=== PATIENT | male | born 1930 | race Caucasian/White ===

== ENCOUNTER 2016-07-04 16:28 | Inpatient (IN) ==
[2016-07-04] MEDS ORDERED: ASPIRIN PO STA (16:56)
[2016-07-04 17:05] LABS: MANUAL DIFF NEEDED? NO
[2016-07-04 17:12] LABS: BASO% 0.6 % (0.0-0.8); EOS# 0.17 X1000 (0.0-0.7); EOS% 1.9 % (0.0-10.0); HEMATOCRIT 34.4 % (42.0-52.0); HEMOGLOBIN 11.3 g/dL (14.0-18.0); IMM GRAN# 0.03 X1000 (0.0-0.04); IMM GRAN% 0.3 % (0.0-0.5); LYMPH# 4.81 X1000 (1.2-3.4); LYMPH% 53.1 % (20.5-51.1); MCH 33.8 PG (27-31); MCHC 32.8 g/dL (33-37); MONO# 0.77 X1000 (0.11-0.59); MONO% 8.5 % (1.7-9.3); MPV 9.8 FL (7.4-10.4); NEUT% 35.6 % (42.2-75.2); PLT 229 X1000 (130-400); RBC 3.34 XMIL (4.7-6.1)
[2016-07-04] MEDS ORDERED: NS 2,000 ML IV ONE (17:20)
[2016-07-04 17:31] LABS: AGAP 21; ALBUMIN 4.2 g/dL (3.5-5.0); ALKALINE PHOSPHATASE 82 U/L (32-122); BUN 21 mg/dL (8-22); CALCIUM 9.4 mg/dL (8.8-10.2); CHLORIDE 98 mmol/L (98-107); CK PROFILE 57 U/L (24-204); COSMO 284; GOT 46 U/L (10-34); GPT 19 U/L (10-44); POTASSIUM 3.7 mmol/L (3.5-5.1); SODIUM 139 mmol/L (136-145); TCO2 20 mmol/L (25-35); TOTAL BILIRUBIN 0.57 mg/dL (0.20-1.00); TOTAL PROTEIN 7.6 g/dL (6.3-8.3)
[2016-07-04] MEDS ORDERED: M.V.I.-12 10 ML, FOLIC ACID 1 MG, MAGNESIUM SULFATE 1 GM, THIAMINE 100 MG in NS 1,000 ML IV ONE (21:19)
[2016-07-04] MEDS ORDERED: PROTONIX IV SCH (21:30)
--- NOTE | 2016-07-04 21:54 | HISTORY AND PHYSICAL ---
CHIEF COMPLAINT: Complains of dizzy spells. HISTORY OF PRESENT ILLNESS: He is an 86-year-old white gentleman who came to the emergency room basically with dizziness and hypotension and he was orthostatic. He has been drinking alcohol. 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 He was admitted in [place] for upper GI bleeding. Seen by Dr. Kasper. Despite counseling, he continues to drink. He had heme-positive stools. Admitted to the hospital with upper GI bleeding which is stable. Hematocrit was 34. He appears to be docile. Last alcohol was yesterday. Basically admitted to the floor for upper GI bleeding. He was seen in my office on 03/23/2016. PAST MEDICAL HISTORY: 1. 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 2. Aortic stenosis. 3. Solitary lung nodule on the right side. PET scan was negative. 4. Deviated nasal septum. 5. Hypertension. 6. Deafness. PAST SURGICAL HISTORY: Bilateral cataract surgery. MEDICINES: Losartan 50 daily. Multivitamins. Norvasc 5 mg daily. Subsequently not able to tolerate due to edema of the legs. SOCIAL HISTORY: Retired. Single. Drinking alcohol. Lives in [place]. FAMILY HISTORY: Father at the age of 68 from heart attack. Mom of old age from dementia. HEALTH MAINTENANCE: Flu vaccine 2014. Last prostate September 2015. Colonoscopy [address] Kasper. REVIEW OF SYSTEMS: HEENT: Dizziness, confusion. No vision problem. No earache. No sore throat. Neck: No goiter. No lymphadenopathy. No bruit. Cardiopulmonary: No chest pain, shortness of breath, PND, orthopnea. GI: Passing black stools. Abdominal pain. No constipation or diarrhea. : No history of hesitancy, frequency, dysuria, hematuria. No swelling of feet. No joint pain. Neurologic: No obvious weakness or seizures. PHYSICAL EXAMINATION: VITALS: He is orthostatic in the emergency room. Afebrile. 138 pounds. HEENT: Atraumatic, normocephalic. Pupils equal, reactive to light. Cataracts removed. NECK: Supple. No lymphadenopathy. No goiter. CHEST: Bilateral air entry. HEART: Sounds are regular with a 2 x 6 systolic murmur in the aortic area. ABDOMEN: Belly is soft, nontender. No signs of peritonitis. No peripheral edema, cyanosis, clubbing. NEUROLOGIC: No obvious deficits. INVESTIGATIONS: White cell count 9, hematocrit 34, MCV is high, platelets 229, 000. PT INR pending. D-dimer is negative. SMA7 is normal. Glucose 167. LFTs were normal. Cardiac enzymes were normal. ASSESSMENT AND PLAN: An 86-year-old, white gentleman, admitted to the hospital with suspicious for gastrointestinal bleeding with heme-positive stool, orthostatic hypertension , in context of drinking alcohol with underlying esophageal varices. 1. Currently stable with banana bag 1 L followed by crystalloids and follow up on serial hematocrits and orthostatic blood pressure. 2. Dr. Kasper consult. If he is unstable, we will transfer to the intensive care unit. 3. Hypertension. On Cozaar and Norvasc which is stopped due to edema. 4. Aortic stenosis, stable last echocardiography. 5. Deafness, stable. 6. Deviated nasal septum, stable. 7. Left retinal hemorrhage, resolved. 8. Elevated prostate-specific antigen, currently stable. Last prostate- specific antigen was 2.4. 9. Atypical chest pain. Follow up on electrocardiogram and cardiac enzymes. 10. History of alcohol abuse. [employer] consulted for help. I will follow up. cc: Nayan Benton MD MTDD
[2016-07-04] MEDS: SODIUM CHLORIDE 0.9% INJ SCH (22:30)
[2016-07-04] MEDS ORDERED: PNEUMOVAX 23 IM ONE (23:49)
--- NOTE | 2016-07-05 05:19 | EKG Report ---
Test Performed on : 07/04/2016 4:37:25 PM Test Reason : Re-Ordered/CP Blood Pressure : / mmHG Vent. Rate : 129 BPM Atrial Rate : 129 BPM P-R Int : 168 ms QRS Dur : 066 ms QT Int : 312 ms P-R-T Axes : 000 026 037 degrees QTc Int : 457 ms Sinus tachycardia. Septal infarct , age undetermined Abnormal ECG When compared with ECG of 20-MAR-2014 05:57, Septal infarct is now present Unconfirmed Result
[2016-07-05 06:03] LABS: MANUAL DIFF NEEDED? NO
[2016-07-05 06:37] LABS: BASO% 0.7 % (0.0-0.8); EOS# 0.22 X1000 (0.0-0.7); EOS% 3.6 % (0.0-10.0); HEMATOCRIT 30.5 % (42.0-52.0); HEMOGLOBIN 9.8 g/dL (14.0-18.0); LYMPH# 2.09 X1000 (1.2-3.4); MCH 33.6 PG (27-31); MCHC 32.1 g/dL (33-37); MCV 104.5 FL (81-99); MONO# 0.82 X1000 (0.11-0.59); MONO% 13.4 % (1.7-9.3); MPV 9.8 FL (7.4-10.4); NEUT% 48.3 % (42.2-75.2); PLT 157 X1000 (130-400); RBC 2.92 XMIL (4.7-6.1)
--- NOTE | 2016-07-05 06:43 | Diag Imaging Result Document ---
PROCEDURE NAME: CHEST-2 VIEWS - 07/04/2016 FRONTAL AND LATERAL CHEST, TWO VIEWS: COMPARISON: Compared to 03/19/2014. FINDINGS: The lungs are hyperexpanded. Mild increased AP diameter to the chest. The pulmonary vessels are small. The heart is not enlarged. There are several old left rib fractures. There is a nodule posteriorly on the lateral chest shown to be a calcified granuloma on the CT from 11/10/2015. No pneumonia. No pleural effusions. Mild scoliosis. IMPRESSION: Emphysema.
--- NOTE | 2016-07-05 06:46 | EKG Report ---
Test Performed on : 07/05/2016 06:04:27 AM Test Reason : cp Blood Pressure : / mmHG Vent. Rate : 053 BPM Atrial Rate : 053 BPM P-R Int : 192 ms QRS Dur : 066 ms QT Int : 474 ms P-R-T Axes : 068 054 056 degrees QTc Int : 444 ms Sinus bradycardia. Otherwise normal ECG When compared with ECG of 04-JUL-2016 16:37, Vent. rate has decreased BY 76 BPM Confirmed by Debbi WILKERSON, Kendell Gallegos ([id number]) on 07/07/2016 9:23:14 PM
[2016-07-05 07:17] LABS: AGAP 13; ALBUMIN 3.6 g/dL (3.5-5.0); ALKALINE PHOSPHATASE 69 U/L (32-122); BUN 15 mg/dL (8-22); CALCIUM 7.9 mg/dL (8.8-10.2); CHLORIDE 108 mmol/L (98-107); CK PROFILE 62 U/L (24-204); COSMO 284; GOT 37 U/L (10-34); GPT 15 U/L (10-44); MAGNESIUM 1.9 mg/dL (1.5-2.7); POTASSIUM 4.3 mmol/L (3.5-5.1); SODIUM 142 mmol/L (136-145); TCO2 21 mmol/L (25-35); TOTAL BILIRUBIN 0.96 mg/dL (0.20-1.00); TOTAL PROTEIN 6.3 g/dL (6.3-8.3)
--- NOTE | 2016-07-05 09:19 | PROGRESS NOTE ---
DATE: 07/05/2016 SUBJECTIVE: Patient went to the bathroom. Denies of any bleeding per rectum. No dizziness. REVIEW OF SYSTEMS: None reported. No chest pain. No abdominal pain. PHYSICAL EXAMINATION: Hemodynamics: Vital signs are stable, 5 feet 6 inches, 138 pounds. HEENT Examination: Within normal limits. Neck: Supple. No lymphadenopathy. Chest: Clear to auscultation. Heart: Heart sounds are regular with a 2/6 systolic murmur in the aortic area. Abdomen: Belly is soft and nontender. No signs of peritonitis noted. Neurologic Examination: No obvious deficits noted. INVESTIGATIONS: CBC: White cell count 6.1, hematocrit 30, platelets 157,000. SMA 7 is normal. Calcium 7.9, magnesium 1.9. Cardiac enzymes were negative. B12 of 595. Chest x-ray stable. EKG: Normal sinus, nothing acute. ASSESSMENT AND PLAN: 1. Atypical chest pain. Followup electrocardiogram and cardiac enzymes were negative. 2. Upper gastrointestinal bleeding in the context of cirrhosis due to alcohol and esophageal varices. Hematocrit dropped to 30. Continue to monitor twice a day. Orthostatic blood pressure. 3. Hypertension. We will hold his home blood pressure medicines. 4. Aortic stenosis, stable. 5. Alcohol use. Intravenous banana bag and started on intravenous fluids. 6. We will discuss with Dr. Kasper further evaluation of upper gastrointestinal bleeding. 7. Level of documentation is level 2, 25 minutes. cc: Nayan Benton MD
[2016-07-05] MEDS: NS 1,000 ML IV SCH ×2 (10:13→21:56)
[2016-07-05] MEDS: ICAR-C PO SCH (21:56)
[2016-07-05] MEDS: CENTRUM SILVER PO SCH (21:56)
[2016-07-05] MEDS: SODIUM CHLORIDE 0.9% INJ SCH (21:56)
[2016-07-05] MEDS: PROTONIX IV SCH (21:56)
--- NOTE | 2016-07-06 05:17 | CONSULTATION ---
DATE OF CONSULTATION: 07/05/2016 REFERRING PHYSICIAN: Jason Benton MD PRIMARY DOCTOR: Jason Benton MD REASON FOR CONSULTATION: Question of gastrointestinal bleeding, anemia and history of liver cirrhosis. 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 He has been drinking alcohol and he has a history of hepatic cirrhosis due to alcoholism with esophageal varices. He was admitted in [place] a few years ago with upper GI bleeding. At that time, he was seen and required an EGD. During this admission his hematocrit was 34.4, but has gone down to 30.5. The patient denies any vomiting blood or passing blood in the stools. The patient denies any history of NSAIDs at home. He has a history of chronic reflux disease and takes Protonix at home. PAST MEDICAL HISTORY: 1. Alcoholic cirrhosis with esophageal varices. 2. Aortic stenosis. 3. Solitary lung nodule on the right side. PET scan was negative. 4. Deviated nasal septum. 5. Hypertension. 6. Deafness. PAST SURGICAL HISTORY: Positive for gastric surgery and EGD many years ago. MEDICATIONS AT HOME: Losartan 50 mg once daily. Multivitamins once daily. Norvasc 5 mg once daily. Protonix once daily. He was able to come off Norvasc because of side effects. MEDICATIONS IN THE HOSPITAL: IV fluids 80 mL/hour. Protonix IV once daily. He was given 1 dose of aspirin. He was given multivitamin once per Dr. Benton. He is currently NPO. SOCIAL HISTORY: Retired. He is single. He had history of drinking alcohol. He lives in [place]. FAMILY HISTORY: Father at age 68 from a heart attack. Mother of old age from dementia. SYSTEM REVIEW: Denies any current fevers, rigors, or chills. Denies any nausea, vomiting, vomiting blood, denies any blood in the stools. He is having some diarrhea here in the hospital. He was complaining of dizzy spells on admission, but is getting better. He has a history of hearing loss. He denies any new genitourinary or neurologic complaints. PHYSICAL EXAMINATION: Vital Signs: Temperature of 98.5 degrees, pulse rate 51, respiratory rate 18, blood pressure 145/66, saturating 98% on room air. General Appearance: Moderately build, moderately nourished, lying in bed, in no acute distress. HEENT: Pale conjunctivae. No icterus. Pupils equal, react to light. Neck: Supple. Chest: Decreased. Cardiovascular: Regular rhythm. No murmur. Abdomen: Soft, nontender, nondistended. Bowel sounds are present. No guarding or rebound. Extremities: No cyanosis, clubbing. Neurologic: He is alert and awake. Answers questions. LABORATORY: His hemoglobin and hematocrit is 9.8 and 30.5, white count of 6.14, platelet count of 157,000. MCV of 104.5. D-dimer 0.29. Sodium 142, potassium 4.3, chloride 108, bicarb 31, anion gap 13, BUN of 15, creatinine 0.9, glucose of 100, calcium 7.9, magnesium 1.9. Total bilirubin is 0.96. AST 37. ALT 15. Alkaline phosphatase 69. Total protein 6.2, albumin of 3.6, B12 595. IMPRESSION AND PLAN: 1. Anemia. 2. History of alcoholic liver cirrhosis complicated by esophageal varices. 3. Diarrhea. 4. Hypotension, orthostasis and dizzy spells which is getting better. 5. Alcoholism. 6. Mildly elevated liver enzymes. AST is elevated. RECOMMENDATIONS: 1. We will start patient on clear liquid diet today. We will schedule him for esophagogastroduodenoscopy tomorrow. We will watch his hematocrit closely and type and cross, transfuse to keep him greater than 27%. We will start on Iron-C 1 capsule b.i.d. we will start him on multivitamin once daily. We will avoid any nonsteroidal antiinflammatory drugs. 2. We will try to obtain the last records from [place] when he was admitted there for gastrointestinal bleeding. 3. We will check his PT, PTT, INR in the morning with the morning labs. 4. The patient is counseled to quit alcohol completely. 5. We will also obtain ultrasound of the abdomen to evaluate further liver enzymes. 6. Also check his acute hepatitis panel once. 7. Patient will be scheduled for esophagogastroduodenoscopy tomorrow. The risks, benefits, indications, alternatives were discussed with the patient. All questions were answered. cc: MD Nayan Luna MD
[2016-07-06 06:20] LABS: MANUAL DIFF NEEDED? NO
[2016-07-06 06:31] LABS: BASO% 0.4 % (0.0-0.8); EOS# 0.29 X1000 (0.0-0.7); EOS% 5.3 % (0.0-10.0); HEMATOCRIT 29.5 % (42.0-52.0); HEMOGLOBIN 9.5 g/dL (14.0-18.0); LYMPH# 1.34 X1000 (1.2-3.4); LYMPH% 24.3 % (20.5-51.1); MCH 33.7 PG (27-31); MCHC 32.2 g/dL (33-37); MCV 104.6 FL (81-99); MONO# 0.72 X1000 (0.11-0.59); MPV 9.5 FL (7.4-10.4); PLT 129 X1000 (130-400); RBC 2.82 XMIL (4.7-6.1)
[2016-07-06 06:34] LABS: INR 1.08; PROTIME 11.4 Seconds (9.2-11.7); PTT 26.1 Seconds (22.0-36.0)
--- NOTE | 2016-07-06 10:02 | Diag Imaging Result Document ---
PROCEDURE NAME: US ABDOMEN-COMPLETE - 07/05/2016 ULTRASOUND ABDOMEN COMPLETE, 07/06/2016: COMPARISON: Renal ultrasound 03/20/2014. FINDINGS: The patient is not NPO. The gallbladder is collapsed and otherwise normal. The liver, pancreas and spleen are normal. Spleen size is 9.9 x 9.7 x 4.9 cm. There is a small peripelvic left renal cyst measuring 1 cm. The right kidney is normal. No hydronephrosis. The common bile duct measures 5 mm. Aorta, IVC, and main portal vein are patent. IMPRESSION: Collapsed gallbladder. Small left renal cyst. Otherwise, negative exam.
[2016-07-06] MEDS ORDERED: DIPRIVAN 1% ONE (10:55)
[2016-07-06 11:06] LABS: HEPATITIS PROFILE ACUTE SEE COMMENTS
[2016-07-06] MEDS: PROTONIX IV SCH ×2 (11:08→21:30)
[2016-07-06] MEDS: CENTRUM SILVER PO SCH ×2 (11:08→21:29)
[2016-07-06] MEDS: ICAR-C PO SCH ×2 (11:08→21:29)
[2016-07-06] MEDS: SODIUM CHLORIDE 0.9% INJ SCH ×2 (11:08→21:30)
[2016-07-06] MEDS ORDERED: XYLOCAINE-MPF 2% ONE (11:28)
[2016-07-06] MEDS ORDERED: ANESTHESIA PB SET 88 IN 5742 ONE (11:28)
[2016-07-06] MEDS ORDERED: LR 1,000 ML ONE (11:28)
--- NOTE | 2016-07-06 11:34 | OPERATIVE NOTE ---
PROCEDURE DATE: 07/06/2016 OPERATIVE PHYSICIAN: Dr. Yogesh Kasper. OPERATIVE PROCEDURE: Esophagogastroduodenoscopy. PREOPERATIVE DIAGNOSES: 1. Anemia. 2. History of alcoholism. 3. History of alcoholic cirrhosis and esophageal varices in the past. 4. Thrombocytopenia. 5. Reflux disease. POSTOPERATIVE DIAGNOSES: 1. Grade 1 esophageal varices seen in the distal esophagus, 2-3 columns, with no evidence of active bleeding. 2. Z-line visualized at 40 cm. 3. Evidence of esophagitis at the gastroesophageal junction. 4. Hiatal hernia, 1-2 cm, sliding type. 5. Erosive gastritis in the body and antrum. 6. Normal fundus, cardia, and incisura. 7. Duodenitis in duodenal bulb of mild degree. Normal second portion of duodenum. No evidence of active bleeding noted. No evidence of fresh or old blood noted in the entire esophagogastroduodenoscopy. ESTIMATED BLOOD LOSS: None. COMPLICATIONS: None. ANESTHESIA: Monitored anesthesia care. SPECIMENS: None. DESCRIPTION OF PROCEDURE: After informed consent, the patient explained the risks, benefits, indications, and alternatives, the patient was prepared for EGD. The risks of the procedure including infection, bleeding, pain, trauma to the surrounding structures, perforation, and were explained to the patient, among others, and he acknowledged understanding and agreed to proceed with the procedure. The patient was brought to the OR, turned to the left position. A bite block was placed. After adequate monitored anesthesia care, the upper scope was introduced and was traversed all the way to the second portion of the duodenum. Esophagus was normal. The proximal one-third of the esophagus showed evidence of grade 1 esophageal varices, 2-3 columns. There was no evidence of any active bleeding or stigmata of bleeding at that area. The Z-line was at 40 cm. There was evidence of erosive esophagitis at the GE junction. There was noted to be a sliding hiatal hernia of 1-2 cm. There was evidence of gastritis involving the body and antrum in the form of erosive gastritis. Retroflexion revealed normal fundus, cardia, and incisura. There was no evidence of any gastric varices. The duodenal bulb showed evidence of erythema and erosions, suggesting mild duodenitis. The second portion appeared normal. The scope was withdrawn into the stomach. The air was aspirated as the scope was withdrawn. The patient tolerated the procedure well, currently monitored in the OR in stable condition. I discussed the findings with the patient on waking up and all questions were answered. RECOMMENDATIONS: 1. The patient will be on Protonix once daily for 3 months and can wean down to Zantac 150 mg p.o. b.i.d. 2. Patient will be on iron-C 1 capsule b.i.d. for 3 months. The patient will then be on 1 capsule p.o. once daily for 3 months. The patient was recommended to quit alcohol completely and avoid any hepatotoxic drugs. 3. The patient is on full liquid diet, advance as tolerated. The will patient follow gastroesophageal reflux instructions. Further recommendations pending hospital course. cc: MD Nayan Luna MD
[2016-07-06] MEDS: NS 1,000 ML IV SCH (15:57)
--- NOTE | 2016-07-06 20:25 | PROGRESS NOTE ---
DATE: 07/06/2016 CHIEF COMPLAINT: No history of any bleeding per rectum. No dizziness upon standing. REVIEW OF SYSTEMS: None reported. OBJECTIVE: Vitals: Stable. He is not orthostatic. HEENT: Within normal limits. Neck: Supple. Chest: Clear. Heart: Sounds are regular with a 2 x 6 aortic stenotic murmur. Abdomen: Belly is soft, nontender. Extremities: No peripheral edema, cyanosis, clubbing. INVESTIGATIONS: CBC: White cell count 5.5, hematocrit 29, MCV 104. Platelets 129,000. Hepatitis panel was negative. ASSESSMENT AND PLAN: 1. Upper gastrointestinal bleeding in the context of esophageal varices and cirrhosis from alcohol. Dr. Kasper was consulted. He is planning to do esophagogastroduodenoscopy this morning. No signs of active bleeding noted. Continue on IV fluids. 2. Alcohol abuse. Watch for impending delirium tremens. 3. Hypertension. Medications have been on hold. 4. We will follow up. LEVEL OF DICTATION: 25 minutes. cc: Nayan Benton MD
[2016-07-07] MEDS: NS 1,000 ML IV SCH (04:22)
[2016-07-07 06:03] LABS: MANUAL DIFF NEEDED? NO
[2016-07-07 06:22] LABS: BASO% 0.4 % (0.0-0.8); EOS# 0.36 X1000 (0.0-0.7); EOS% 6.9 % (0.0-10.0); HEMATOCRIT 31.7 % (42.0-52.0); HEMOGLOBIN 10.3 g/dL (14.0-18.0); IMM GRAN# 0.02 X1000 (0.0-0.04); IMM GRAN% 0.4 % (0.0-0.5); LYMPH# 1.25 X1000 (1.2-3.4); MCH 33.4 PG (27-31); MCHC 32.5 g/dL (33-37); MCV 102.9 FL (81-99); MONO# 0.76 X1000 (0.11-0.59); MONO% 14.6 % (1.7-9.3); MPV 9.7 FL (7.4-10.4); NEUT% 53.7 % (42.2-75.2); PLT 136 X1000 (130-400); RBC 3.08 XMIL (4.7-6.1)
[2016-07-07] MEDS: SODIUM CHLORIDE 0.9% INJ SCH ×2 (08:18→21:43)
[2016-07-07] MEDS: PROTONIX IV SCH ×2 (08:18→21:43)
[2016-07-07] MEDS: CENTRUM SILVER PO SCH ×2 (08:19→21:43)
[2016-07-07] MEDS: ICAR-C PO SCH ×2 (08:19→21:43)
--- NOTE | 2016-07-07 15:17 | PROGRESS NOTE ---
DATE: 07/07/2016 ADDENDUM: Ms. Harmon had an EGD performed by Dr. Kasper. He found some esophagitis and severe erosive gastritis. He probably has been bleeding from that area. He has not noticed any blood lately. We will repeat a CBC again. cc: MD Nayan Velazquez MD
[2016-07-08] MEDS: NS 1,000 ML IV SCH ×3 (05:33→16:25)
[2016-07-08 05:44] LABS: MANUAL DIFF NEEDED? NO
[2016-07-08 05:55] LABS: BASO% 0.5 % (0.0-0.8); EOS# 0.43 X1000 (0.0-0.7); EOS% 6.6 % (0.0-10.0); HEMATOCRIT 29.9 % (42.0-52.0); HEMOGLOBIN 9.8 g/dL (14.0-18.0); LYMPH% 21.6 % (20.5-51.1); MCH 34.1 PG (27-31); MCHC 32.8 g/dL (33-37); MCV 104.2 FL (81-99); MONO# 1.14 X1000 (0.11-0.59); MONO% 17.6 % (1.7-9.3); MPV 9.3 FL (7.4-10.4); NEUT% 53.7 % (42.2-75.2); PLT 138 X1000 (130-400); RBC 2.87 XMIL (4.7-6.1)
[2016-07-08] MEDS: PROTONIX IV SCH ×2 (10:04→21:45)
[2016-07-08] MEDS: SODIUM CHLORIDE 0.9% INJ SCH ×2 (10:04→21:45)
[2016-07-08] MEDS: ICAR-C PO SCH ×2 (10:04→21:45)
[2016-07-08] MEDS: CENTRUM SILVER PO SCH ×2 (10:04→21:45)
--- NOTE | 2016-07-08 10:08 | PROGRESS NOTE ---
DATE: 07/08/2016 SUBJECTIVE: The patient says he is feeling better. He originally came in with chest pain that sounds atypical for cardiac pain; it is sharp pain on the left side of the chest. He had some bleeding and did have an EGD. LABORATORY: Hemoglobin has dropped from 11.3 down to 9.8. OBJECTIVE: Blood pressure 166/72, respirations 18, pulse 60, temperature 98.4 degrees Fahrenheit. HEENT: Normocephalic. EOMs intact. PERRLA. Throat clear. Lungs clear to auscultation and percussion without rhonchi, rales, or wheezes. Heart: Regular rate and rhythm without murmurs, gallops, or friction rubs. Abdomen is soft with active bowel sounds. No organomegaly or tenderness. EGD did show erosive esophagitis, sliding hiatal hernia, and gastritis. The duodenal bulb showed erythema and erosions suggesting duodenitis. ASSESSMENT: 1. Upper gastrointestinal bleed. 2. Chest pain, atypical for cardiac. 3. History of alcoholic cirrhosis. 4. History of alcoholism. 5. Mild thrombocytopenia. 6. Reflux disease. 7. Anemia. 8. Duodenitis. 9. Erosive gastritis. 10. Esophagitis. Platelet count is back to 138,000. PLAN: We will watch today and see if he has any more bleeding. We will see what gastroenterology says about this. cc: MD Nayan Mooney Jr, MD
[2016-07-08] MEDS: CARAFATE LIQUID PO SCH ×2 (13:56→21:45)
[2016-07-09] MEDS: CARAFATE LIQUID PO SCH ×4 (03:01→21:17)
[2016-07-09] MEDS: NS 1,000 ML IV SCH ×2 (03:41→14:43)
[2016-07-09 06:25] LABS: BASO% 0.2 % (0.0-0.8); EOS# 0.38 X1000 (0.0-0.7); EOS% 7.1 % (0.0-10.0); HEMATOCRIT 29.2 % (42.0-52.0); HEMOGLOBIN 9.6 g/dL (14.0-18.0); LYMPH# 1.35 X1000 (1.2-3.4); LYMPH% 25.3 % (20.5-51.1); MANUAL DIFF NEEDED? YES; MCHC 32.9 g/dL (33-37); MCV 103.5 FL (81-99); MONO# 1.07 X1000 (0.11-0.59); MONO% 20.1 % (1.7-9.3); MPV 9.3 FL (7.4-10.4); NEUT% 47.3 % (42.2-75.2); PLT 137 X1000 (130-400); RBC 2.82 XMIL (4.7-6.1)
[2016-07-09 06:40] LABS: EOS 6 % (1-10); LYMPHS 20 % (21-51); MONO 16 % (1-9)
[2016-07-09 06:47] LABS: AGAP 12; BUN 9 mg/dL (8-22); CALCIUM 7.7 mg/dL (8.8-10.2); CHLORIDE 107 mmol/L (98-107); COSMO 282; POTASSIUM 3.4 mmol/L (3.5-5.1); SODIUM 142 mmol/L (136-145); TCO2 23 mmol/L (25-35)
[2016-07-09] MEDS: PROTONIX IV SCH ×2 (08:01→23:31)
[2016-07-09] MEDS: CENTRUM SILVER PO SCH ×2 (08:01→21:17)
[2016-07-09] MEDS: SODIUM CHLORIDE 0.9% INJ SCH (08:01)
[2016-07-09] MEDS: ICAR-C PO SCH ×2 (08:01→21:24)
--- NOTE | 2016-07-09 08:46 | PROGRESS NOTE ---
DATE: 07/08/2016 GASTROENTEROLOGY NOTE: DICTATING PHYSICIAN: Dr. Benton. SUBJECTIVE: Patient is currently resting in bed. He denies any nausea or vomiting. He complains of runny bowel movements. He denies noticing any blood in the stools. He continues to be anemic. He denies any evidence of any kin/overt GI bleeding. OBJECTIVE: Vital signs: Temperature 98 degrees, pulse rate 68, respiratory rate 18, blood pressure 152/68, saturating 100% on room air. General Appearance: Moderately nourished, lying in bed, in no distress. HEENT: No pallor, no icterus. Neck: Supple. Abdomen: Soft, nontender, nondistended. Bowel sounds are present. No guarding. No rebound. Extremities : No cyanosis, clubbing. Neurologic: He is alert, awake, and answers simple questions. He has a hearing loss. LABS: Hemoglobin and hematocrit is 9.8, 29.9. White count 6.4. Platelet count of 138,000. MCV of 104.2. INR 1.08. PT of 11.4. PTT of 26.1. Sodium 142, potassium 4.3, chloride 100, bicarbonate, BUN of 15, creatinine of 0.9, glucose of 100, calcium is 7.9, magnesium is 1.9, total bilirubin is 0.96, AST 37, ALT 15, alkaline phosphatase 69. Total protein 6.3, albumin of 3.6. B12 595. Hepatitis panel is nonreactive. IMPRESSION/PLAN: 1. Anemia of unclear etiology. Negative Hemoccult. He will need a colonoscopy if he continues to be anemic as an outpatient. In the interim we will continue him on iron supplementation and multivitamins. 2. Reflux disease. He will continue on PPIs for 3 months and then after 3 months we are going wean down his Zantac to twice daily. 3. Grade 1 esophageal varices. No active bleeding noted. Hiatal hernia and erosive gastritis, duodenitis noted on EGD on 07/06/2016. Continue PPI as above, and the patient was also counseled to quit alcohol completely. 4. Mildly elevated liver enzymes which is trending down as the ultrasound showed collapsed gallbladder, small left renal cyst. The liver, pancreas, spleen were normal. Likely mild alcoholic liver disease. 5. The above plan of care was discussed with the patient. All questions were answered. cc: MD Nayan Luna MD MTDD
--- NOTE | 2016-07-09 10:52 | PROGRESS NOTE ---
DATE: 07/09/2016 SUBJECTIVE: The patient says he is feeling fine and has no complaints at this time. The patient is scheduled to go to rehab on Sunday. OBJECTIVE: Vital Signs: Blood pressure 183/70. He has not been on his losartan so I will restart that. Pulse is 66 and regular, respirations 16, temperature 98.9 degrees Fahrenheit. HEENT: Normocephalic. EOMs intact. PERRLA. Throat clear. Lungs: Clear to auscultation and percussion without rhonchi, rales, or wheezes. Heart: Regular rate and rhythm without murmurs, gallops, or friction rubs. Abdomen: Soft. Active bowel sounds. No organomegaly or tenderness at this point. Neurological: Examination intact grossly. Laboratory Data: Hemoglobin has dropped a little bit more down to 9.6, but it is fairly stable. ASSESSMENT: 1. Upper gastrointestinal bleed. 2. Anemia. 3. Chest pain, atypical for cardiac. 4. Alcoholic cirrhosis. 5. Alcoholism. 6. Mild thrombocytopenia. 7. Reflux disease. 8. Duodenitis. 9. Erosive gastritis. 10. Esophagitis. PLAN: Continue care. cc: MD Nayan Mooney Jr, MD
[2016-07-09] MEDS: COZAAR PO SCH (21:19)
[2016-07-10] MEDS: CARAFATE LIQUID PO SCH ×3 (02:55→08:31)
[2016-07-10] MEDS: NS 1,000 ML IV SCH (03:20)
[2016-07-10 05:49] LABS: BASO% 0.2 % (0.0-0.8); EOS# 0.38 X1000 (0.0-0.7); EOS% 6.9 % (0.0-10.0); HEMOGLOBIN 9.4 g/dL (14.0-18.0); IMM GRAN# 0.03 X1000 (0.0-0.04); IMM GRAN% 0.5 % (0.0-0.5); LYMPH# 1.52 X1000 (1.2-3.4); LYMPH% 27.6 % (20.5-51.1); MANUAL DIFF NEEDED? YES; MCH 33.5 PG (27-31); MCHC 32.4 g/dL (33-37); MCV 103.2 FL (81-99); MONO# 1.21 X1000 (0.11-0.59); MPV 8.8 FL (7.4-10.4); NEUT% 42.8 % (42.2-75.2); PLT 145 X1000 (130-400); RBC 2.81 XMIL (4.7-6.1)
[2016-07-10 05:54] LABS: AGAP 15; BUN 9 mg/dL (8-22); CALCIUM 8.3 mg/dL (8.8-10.2); CHLORIDE 105 mmol/L (98-107); COSMO 283; POTASSIUM 3.8 mmol/L (3.5-5.1); SODIUM 143 mmol/L (136-145); TCO2 23 mmol/L (25-35)
[2016-07-10 06:15] LABS: BANDS 4 % (0-1); BASO 2 % (0-1); EOS 6 % (1-10); LYMPHS 24 % (21-51); MONO 16 % (1-9)
[2016-07-10 07:47] VITALS: BP 176/68
[2016-07-10] MEDS: CENTRUM SILVER PO SCH (08:31)
[2016-07-10] MEDS: ICAR-C PO SCH (08:31)
[2016-07-10] MEDS: SODIUM CHLORIDE 0.9% INJ SCH (08:31)
[2016-07-10] MEDS: PROTONIX IV SCH (08:31)
[2016-07-10] MEDS: COZAAR PO SCH (08:31)
--- NOTE | 2016-07-10 08:58 | DISCHARGE SUMMARY ---
ADMISSION DATE: 07/04/2016 DISCHARGE DATE: 07/10/2016 DISCHARGING DIAGNOSIS: Upper gastrointestinal bleed, stable. SECONDARY DIAGNOSES: 1. Alcohol cirrhosis with esophageal varices. 2. Aortic stenosis. 3. Deviated nasal septum. 4. Hypertension. 5. Deafness. 6. Stable right lung nodule. CONSULTANTS: Dr. Kasper. PROCEDURES: EGD; no signs of active bleeding noted. BRIEF HISTORY: Please see the H P that was done on 07/04/2016. In brief, he is an 86-year-old white gentleman with the above problems, admitted to the hospital with orthostatic hypotension, dizziness, heme-positive stools. He has been drinking alcohol. HOSPITAL COURSE: He has a decline of hematocrit to 29. After that which he was stable. He was given IV Protonix and IV fluids. There were no signs of DTs noted. Dr. Kasper did an EGD without any signs of active bleeding. Subsequent stools studies were negative. Hemodynamics were stable. There were no signs of active bleeding noted. LABORATORIES: As follows. CBC: White cell count 5.5, hematocrit 29, MCV 103, platelets 145. SMA 7: Sodium 143, potassium 3.8, chloride 105, BUN 9, creatinine 0.9. DISPOSITION: At the request of the family, the patient has been sent to rehab at [facility]. DISCHARGE MEDICATIONS: Losartan 50 p.o. b.i.d., multivitamin 1 tablet daily, Protonix 40 daily, Icar C Plus 1 tablet daily. DISCHARGE INSTRUCTIONS: Last colonoscopy [address] Kasper. If the blood pressure is still running high consider using Norvasc as needed. Follow up in my office in 10 days. cc: MD Yogesh Alves MD
[2016-07-10] MEDS ORDERED: NON-FORMULARY MED (Multivitamin [Multivitamins] 1 EACH) PO SCH (09:00)
--- NOTE | 2016-07-11 14:38 | PROVIDER DOCUMENTATION ---
This chart was entered by Herrera Jasso Scribe, acting as scribe for Jose Chairez MD. HPI-Chest Pain - General Stated Complaint: CHEST PAIN Time Seen by Provider: 07/04/16 16:40 Source: patient Allergies/Adverse Reactions: Patient Allergies Allergy/AdvReac Type Severity Reaction Status Date / Time No Known Allergies Allergy Verified 07/04/16 17:43 Home Medications: Home Medication List Medication Instructions Recorded Confirmed Last Taken Type Losartan Potassium 50 mg PO BID 11/30/13 07/04/16 07/04/16 07:00 History Multivitamin [Multivitamins] 1 each PO DAILY #1 capsule 03/25/14 07/04/16 08:00 Rx Pantoprazole [Protonix] 40 mg PO DAILY@0700 #1 tablet 03/25/14 07/04/16 07:00 Rx Iron Carbonyl/Vit C/Vit B12/FA 1 each PO DAILY #30 tablet 07/10/16 Unknown Rx [Icar-C Plus] - History of Present Illness-CP Nature of Presenting Problem: Patient is a 86 y/o M that presents to the ER via EMS after having chest pain that came on 2 hours area captain but is gone now. patient can't describe the type of pain. Denies radiation of pain. denies shortness of breath, n/v, or diaphoresis. No history of GA or CHF. Location: reports: substernal Chest Pain Radiation: reports: no radiation Quality of Pain: reports: other (pt couldn't describe it) Severity in ED: mild Onset/Duration: abrupt, this afternoon (lasted two hours) Timing: gone now Context/Activities at Onset: reports: none Modifying Factors: improves with: nothing Associated Symptoms: denies: abdominal pain, dizziness, edema, nausea, shortness of breath, vomiting Nitro Today/Relief: no nitro taken today Aspirin Treatment Today: 325 mg x 1, provided by ED Similar Symptoms Previously?: No Recently Seen Here or By Another Healthcare Provider: No Review of Systems - Adult - REVIEW OF SYSTEMS - ADULT Constitutional: denies: chills, fever Eyes: denies: decreased vision, blurred vision, double vision Ears, Nose, Mouth & Throat: denies: ear pain, sinus problem, throat pain Cardiovascular: reports: chest pain. denies: palpitations, syncope Respiratory: denies: cough, shortness of breath, wheezing Gastrointestinal: denies: abdominal pain, nausea, vomiting Genitourinary: reports: no symptoms reported Musculoskeletal: reports: no symptoms reported Integumentary: reports: no symptoms reported Neurological: reports: no symptoms reported Psychiatric: reports: no symptoms reported Endocrine: reports: no symptoms reported Hematologic/Lymphatic: reports: no symptoms reported Allergic/Immunologic: reports: no symptoms reported All Other Systems: Reviewed and Negative Past History - Adult - PAST MEDICAL HISTORY-ADULT Review of Records: reports: Old Records Reviewed, Nursing Assessment Review, Medications Reviewed Cardiovascular: reports: HTN, hyperlipidemia Neurological: reports: CVA - PRIOR SURGERIES/PROCEDURES Surgical/Procedure History: reports: other (cataract removal) - IMMUNIZATION STATUS Childhood Immunizations: See Nurse Assessment Flu Vaccine: See Nurse Assessment - FAMILY HISTORY Family History: reviewed, not pertinent - SOCIAL HISTORY Smoking: quit greater than 1 year, cigarettes Alcohol Use Frequency: every day Number of drinks per typical drinking period:: 2 drinks (shots) Living Situation: alone Physical Exam-General - PHYSICAL EXAM-ADULT Initial Vital Signs Reviewed: Yes - CONSTITUTIONAL General Appearance: alert, no apparent distress, other (hard of hearing) - EYES Eyes: PERRL/EOMI, pink conjunctivae - HEAD, EARS, NOSE, MOUTH & THROAT HENMT: normocephalic/atraumatic, moist mucous membranes, normal ENT inspection - NECK Neck: full range of motion, normal inspection - RESPIRATORY Respiratory: lungs clear, normal breath sounds, no respiratory distress, no accessory muscle use - CARDIOVASCULAR Cardiovascular: regular rate, rhythm, no edema, no murmur - GASTROINTESTINAL (ABDOMEN) Abdominal Exam: normal bowel sounds, non tender, soft - GENITOURINARY Rectal Exam: normal rectal tone, black stool. negative: tenderness - MUSCULOSKELETAL Extremity: normal range of motion, normal inspection, no pedal edema - SKIN Integumentary: normal color, warm/dry - NEUROLOGIC Neurologic: grossly normal, no motor/sensory deficits - PSYCHIATRIC Psych/Mental Status: normal mood/affect, normal thought content, normal thought process, oriented x 3 Progress - PLAN OF CARE/RESULTS Progress/Plan/Lab Results: Orders Category Date Time Status Admit Patient To Inpatient Status Routine AdmDCTranf 07/04/16 18:38 Ordered Cardiac Monitoring DIRECTED Care 07/04/16 16:56 Active Oxygen Therapy- ED Nursing DIRECTED Care 07/04/16 16:56 Completed Saline Loc NOW Care 07/04/16 16:56 Completed CHEST-2 VIEWS [RAD] Stat Exams 07/04/16 16:56 Completed CBC WITH ELECTRONIC DIFF [HEME] Stat Lab 07/04/16 16:42 Completed CK PROFILE [SP CHEM] Stat Lab 07/04/16 16:42 Completed COMPREHENSIVE METABOLIC PANEL [CHEM] Stat Lab 07/04/16 16:42 Completed D-DIMER [CHEM] Stat Lab 07/04/16 16:42 Completed MAGNESIUM [CHEM] Stat Lab 07/04/16 16:42 Completed PRO B-NATRIURETIC PEPTIDE Stat Lab 07/04/16 16:42 Completed Stool [OCCULT BLOOD SCREENING] [STOOL] Stat Lab 07/04/16 17:38 Completed TROPONIN T Stat Lab 07/04/16 16:42 Completed TYPE & SCREEN [BBK] Stat Lab 07/04/16 16:42 Completed 0.9% Sodium Chloride Inj [Ns] 2,000 ml Med 07/04/16 17:20 Discontinued IV 999 mls/hr Aspirin Med 07/04/16 16:56 Discontinued 325 mg PO STAT STA Transfer/Admit Order [TRANSFER] Routine Transfer 07/04/16 18:40 Completed Result Diagrams: 07/10/16 05:00 07/10/16 05:00 - EKG 1 Time of EKG reading by physician:: 16:37 EKG Read and Signed by:: Jose Chairez EKG Interpretation (*Must complete 3 of following elements*): Abnormal Rate: 129 Rhythm: sinus tachycardia [place]: normal QRS: normal DC Interval: normal ST Wave: non-specific ST changes Departure - Departure Time of Disposition Decision: 20:50 DIAGNOSIS: GI bleed, Orthostatic hypotension Disposition: ADMITTED INPATIENT 09 Certified Medical Emergency: Emergent Condition: Stable This chart was documented by the indicated scribe, (Herrera Jasso, Scribe) and accurately reflects the services I performed and decisions made by , Jose Chairez MD, as attested by the provider's signature.
== END 2016-07-10 11:50 ==
LOC: ED 16:28 → 4N 20:51
PROVIDERS: ADMIT Internal Medicine; ATTEND Internal Medicine